=== PATIENT | female | born 1955 | race Caucasian/White ===

== ENCOUNTER 2017-06-07 23:11 | Inpatient (IN) | payer OTHER ==
[~2017-06-07] VITALS: Ht 165.1 cm; Wt 104.5 kg
[~2017-06-07 23:11] MED LIST: AMIO200T PO; APIX5TAB PO; ASPI-515 PO; ASPI-621 PO; CARV6.2512 PO; CYAN10005 PO; DABI150C PO; DIGO125T6 PO; DIGO250T PO; FOLI-17 PO; FURO-93 PO; LISI5TAB7 PO; MULT1TAB60 PO; POTA20PA PO; SIMV10TA PO; SIMV10TA3 PO; SPIR25TA PO; THIA100T6 PO
[2017-06-07] MEDS ORDERED: DILTIAZEM 125 MG in DEXTROSE 5% 100 ML IV SCH (23:36)
[2017-06-07] MEDS ORDERED: DILTIAZEM 5 MG/ML, 5ML ONE (23:37)
[2017-06-08] MEDS ORDERED: ASPIRIN 81 MG TABLET CHEW PO ONE
[2017-06-08] MEDS ORDERED: DILTIAZEM 5 MG/ML, 5ML IV ONE
[2017-06-08 00:21] LABS: BLOOD UREA NITROGEN 14 mg/dL (7-18)
[2017-06-08 00:26] LABS: IS PT STATUS REG ER OR PRE ER? YES
[2017-06-08] MEDS: DILTIAZEM 125 MG in SODIUM CHLORIDE 0.9% 100 ML IV SCH ×3 (01:30→22:19)
[2017-06-08] MEDS: NICOTINE 7 MG/24 HR PATCH.TD24 TD SCH (02:00)
[2017-06-08] MEDS ORDERED: ONDANSETRON 2MG/ML, 2ML IVPush PRN (02:00)
[2017-06-08] MEDS ORDERED: DOCUSATE 100 MG CAPSULE PO PRN (02:00)
[2017-06-08] MEDS ORDERED: GUAIFENESIN/DM 200-20MG, 10ML UDC PO PRN (02:00)
[2017-06-08] MEDS ORDERED: HYDROcodone/APAP 5/325 TABLET PO PRN (02:00)
[2017-06-08] MEDS ORDERED: POLYETHYLENE GLYCOL 17 GM PACKET PO PRN (02:00)
[2017-06-08] MEDS ORDERED: morphine SULFATE 10 MG/ML, 1ML IVPush PRN (02:00)
[2017-06-08 02:31] VITALS: BP 126/84
[2017-06-08] MEDS: FUROSEMIDE 40 MG/4 ML IV SCH ×3 (03:26→17:59)
[2017-06-08] MEDS ORDERED: ASPIRIN 81 MG TABLET EC PO SCH (06:00)
[2017-06-08 07:09] VITALS: BP 108/76
[2017-06-08] MEDS ORDERED: POTASSIUM CHLORIDE 20 MEQ TAB.ER.PRT PO ONE (09:00)
[2017-06-08] MEDS: THIAMINE 100MG TABLET PO SCH (09:03)
[2017-06-08] MEDS: ASPIRIN 325 MG TABLET EC PO SCH (09:03)
[2017-06-08] MEDS: CYANOCOBALAMIN 1,000 MCG TABLET PO SCH (09:03)
[2017-06-08] MEDS: SENNA/DOCUSATE TABLET PO SCH (09:03)
[2017-06-08] MEDS: FOLIC ACID 1 MG TABLET PO SCH (09:04)
[2017-06-08] MEDS: MULTIVITAMIN 1 TABLET PO SCH (09:04)
[2017-06-08] MEDS: DIGOXIN 0.25 MG TABLET PO SCH (09:04)
[2017-06-08] MEDS: APIXABAN 5 MG TABLET PO SCH ×2 (09:04→20:41)
[2017-06-08] MEDS: SODIUM CHLORIDE FLUSH 10ML SYR IVF SCH ×2 (09:05→20:41)
[2017-06-08] MEDS: ACETAMINOPHEN 325 MG TABLET PO PRN ×2 (09:19→20:41)
[2017-06-08 10:09] VITALS: BP 112/76
[2017-06-08 14:16] VITALS: BP 99/66
[2017-06-08 16:36] VITALS: BP 110/75
[2017-06-08 20:30] VITALS: BP 105/71
[2017-06-08] MEDS: SIMVASTATIN 10 MG TABLET PO SCH (20:41)
[2017-06-09] MEDS: NICOTINE 7 MG/24 HR PATCH.TD24 TD SCH (01:21)
[2017-06-09] MEDS: ACETAMINOPHEN 325 MG TABLET PO PRN (02:16)
[2017-06-09 02:20] VITALS: BP 108/72
[2017-06-09 05:02] LABS: BLOOD UREA NITROGEN 13 mg/dL (7-18)
[2017-06-09 05:06] LABS: IS PT STATUS REG ER OR PRE ER? NO
[2017-06-09 08:12] VITALS: BP 110/75
[2017-06-09] MEDS: ASPIRIN 325 MG TABLET EC PO SCH (08:18)
[2017-06-09] MEDS: SODIUM CHLORIDE FLUSH 10ML SYR IVF SCH ×3 (08:18→21:15)
[2017-06-09] MEDS: DIGOXIN 0.25 MG TABLET PO SCH (08:18)
[2017-06-09] MEDS: MULTIVITAMIN 1 TABLET PO SCH (08:18)
[2017-06-09] MEDS: CYANOCOBALAMIN 1,000 MCG TABLET PO SCH (08:18)
[2017-06-09] MEDS: FOLIC ACID 1 MG TABLET PO SCH (08:18)
[2017-06-09] MEDS: APIXABAN 5 MG TABLET PO SCH ×2 (08:18→21:15)
[2017-06-09] MEDS: FUROSEMIDE 40 MG/4 ML IV SCH (08:18)
[2017-06-09] MEDS: THIAMINE 100MG TABLET PO SCH (08:18)
[2017-06-09] MEDS: SENNA/DOCUSATE TABLET PO SCH (08:20)
[2017-06-09] MEDS ORDERED: DEXTROSE 50%, 50ML SYRINGE IVPush PRN (10:30)
[2017-06-09] MEDS ORDERED: GLUCAGON 1 MG IM PRN (10:30)
[2017-06-09] MEDS ORDERED: DEXTROSE 4 GM TAB.CHEW PO PRN (10:30)
[2017-06-09] MEDS ORDERED: DILTIAZEM 60 MG TABLET PO SCH (11:00)
[2017-06-09] MEDS: INSULIN ASPART 100 UNITS/ML, PEN SQ-INSULIN SCH ×3 (11:58→21:11)
[2017-06-09 13:17] VITALS: BP 99/67
[2017-06-09 16:02] VITALS: BP 99/68
[2017-06-09 19:14] VITALS: BP 100/70
[2017-06-09] MEDS: SIMVASTATIN 10 MG TABLET PO SCH (21:15)
[2017-06-10 01:26] VITALS: BP 107/71
[2017-06-10] MEDS: NICOTINE 7 MG/24 HR PATCH.TD24 TD SCH (01:31)
[2017-06-10] MEDS: ASPIRIN 81 MG TABLET EC PO SCH (05:48)
[2017-06-10 07:05] VITALS: BP 102/69
[2017-06-10] MEDS: THIAMINE 100MG TABLET PO SCH (08:27)
[2017-06-10] MEDS: INSULIN ASPART 100 UNITS/ML, PEN SQ-INSULIN SCH ×4 (08:27→20:51)
[2017-06-10] MEDS: FOLIC ACID 1 MG TABLET PO SCH (08:28)
[2017-06-10] MEDS: CYANOCOBALAMIN 1,000 MCG TABLET PO SCH ×2 (08:28→08:30)
[2017-06-10] MEDS: MULTIVITAMIN 1 TABLET PO SCH (08:28)
[2017-06-10] MEDS: DIGOXIN 0.25 MG TABLET PO SCH (08:28)
[2017-06-10] MEDS: APIXABAN 5 MG TABLET PO SCH ×2 (08:29→20:50)
[2017-06-10] MEDS: FUROSEMIDE 40 MG/4 ML IV SCH (08:30)
[2017-06-10] MEDS: SODIUM CHLORIDE FLUSH 10ML SYR IVF SCH ×4 (08:30→20:50)
[2017-06-10] MEDS: SENNA/DOCUSATE TABLET PO SCH (08:30)
[2017-06-10] MEDS: CARVEDILOL 3.125 MG TABLET PO SCH ×2 (12:11→20:49)
[2017-06-10] MEDS: LISINOPRIL 5 MG TABLET PO SCH (12:14)
[2017-06-10 14:15] VITALS: BP 93/61
[2017-06-10 19:24] VITALS: BP 103/70
[2017-06-10 20:49] VITALS: BP 101/76
[2017-06-10] MEDS: SIMVASTATIN 10 MG TABLET PO SCH (20:50)
[2017-06-11] MEDS: NICOTINE 7 MG/24 HR PATCH.TD24 TD SCH (02:00)
[2017-06-11 02:07] VITALS: BP 102/68
[2017-06-11] MEDS: ASPIRIN 81 MG TABLET EC PO SCH (06:05)
[2017-06-11] MEDS: CARVEDILOL 3.125 MG TABLET PO SCH (06:06)
[2017-06-11 07:05] VITALS: BP 99/66
[2017-06-11] MEDS ORDERED: LISI5TAB7 PO (07:29)
[2017-06-11] MEDS ORDERED: POTA20TA14 PO (07:29)
[2017-06-11] MEDS ORDERED: FURO-93 PO (07:29)
[2017-06-11] MEDS ORDERED: CARV3.1212 PO (07:29)
[2017-06-11] MEDS ORDERED: METF500T4 PO (07:32)
[2017-06-11] MEDS: FUROSEMIDE 40 MG/4 ML IV SCH (07:59)
[2017-06-11] MEDS: INSULIN ASPART 100 UNITS/ML, PEN SQ-INSULIN SCH (07:59)
[2017-06-11] MEDS: SODIUM CHLORIDE FLUSH 10ML SYR IVF SCH ×2 (07:59)
[2017-06-11] MEDS: CYANOCOBALAMIN 1,000 MCG TABLET PO SCH ×2 (08:00→08:01)
[2017-06-11] MEDS: APIXABAN 5 MG TABLET PO SCH (08:00)
[2017-06-11] MEDS: THIAMINE 100MG TABLET PO SCH (08:00)
[2017-06-11] MEDS: SENNA/DOCUSATE TABLET PO SCH (08:01)
[2017-06-11] MEDS: LISINOPRIL 5 MG TABLET PO SCH (08:01)
[2017-06-11] MEDS: DIGOXIN 0.25 MG TABLET PO SCH (08:01)
[2017-06-11] MEDS: FOLIC ACID 1 MG TABLET PO SCH (08:01)
[2017-06-11] MEDS: MULTIVITAMIN 1 TABLET PO SCH (08:01)
[2017-06-11] MEDS ORDERED: DIGO250T PO (14:48)
[2017-06-11] MEDS ORDERED: SIMV10TA3 PO (14:48)
[2017-06-11] MEDS ORDERED: APIX5TAB PO (14:48)
[2017-06-11] MEDS ORDERED: ASPI-621 PO (14:48)
== END 2017-06-11 10:50 | disposition home or self-care (01) | DRG 308 ==
LOC: ED 23:59 → SUATTDRO 06-08 00:57 → EDIP 06-08 01:45 → 5SO 06-08 02:30 → DCLOUNGE 06-11 10:14
PROVIDERS: ADMIT Family Medicine; ATTEND Internal Medicine
DX: I48.91 Unspecified atrial fibrillation (principal); I50.43 Acute on chronic combined systolic (congestive) and diastolic (congestive) heart failure; Z68.41 Body mass index [BMI] 40.0-44.9, adult; D68.69 Other thrombophilia; E66.01 Morbid (severe) obesity due to excess calories; Z66 Do not resuscitate; D69.6 Thrombocytopenia, unspecified; F17.210 Nicotine dependence, cigarettes, uncomplicated; I25.10 Atherosclerotic heart disease of native coronary artery without angina pectoris; E11.65 Type 2 diabetes mellitus with hyperglycemia; E53.8 Deficiency of other specified B group vitamins; D75.89 Other specified diseases of blood and blood-forming organs; Z86.711 Personal history of pulmonary embolism; I25.2 Old myocardial infarction; Z91.19 Patient's noncompliance with other medical treatment and regimen; Z88.0 Allergy status to penicillin; Z82.49 Family history of ischemic heart disease and other diseases of the circulatory system; Z80.1 Family history of malignant neoplasm of trachea, bronchus and lung; Z72.89 Other problems related to lifestyle; Z71.6 Tobacco abuse counseling
CPT/HCPCS: 36415; 71010; 80048; 80061; 82040; 82962; 83036; 83880; 84443; 84484; 85025; 85610; 93005; 96374; J1815; J1940

== ENCOUNTER 2017-09-12 18:26 | Inpatient (IN) | payer OTHER ==
[~2017-09-12] VITALS: Ht 167.6 cm; Wt 112.4 kg
[~2017-09-12 18:26] MED LIST changes: +CARV3.1212 PO; +METF500T4 PO; +POTA20TA14 PO
[2017-09-12] MEDS ORDERED: DILTIAZEM 125 MG in DEXTROSE 5% 100 ML IV SCH (18:45)
[2017-09-12] MEDS ORDERED: SODIUM CHLORIDE FLUSH 10ML SYR IVF ONE (19:00)
[2017-09-12] MEDS ORDERED: DILTIAZEM 125 MG in SODIUM CHLORIDE 0.9% 100 ML IV SCH (19:00)
[2017-09-12] MEDS ORDERED: DILTIAZEM 5 MG/ML, 5ML IV ONE (19:00)
[2017-09-12 19:04] LABS: HEMOGLOBIN 15.3 g/dL (11.7-16.4); WHITE BLOOD COUNT 8.1 x10^3/uL (3.4-10)
[2017-09-12 19:17] LABS: BLOOD UREA NITROGEN 11 mg/dL (7-18)
[2017-09-12] MEDS ORDERED: DILTIAZEM 5 MG/ML, 5ML ONE (19:17)
[2017-09-12 19:21] LABS: PH, VENOUS 7.313 pH (7.320-7.420)
[2017-09-12 19:23] LABS: ASPARTATE AMINO TRANSFERASE 18 U/L (15-37)
[2017-09-12 19:31] LABS: IS PT STATUS REG ER OR PRE ER? YES
[2017-09-12] MEDS: SODIUM CHLORIDE 0.9% 1,000ML IVBOLUS ONE ×2 (19:45→19:52)
[2017-09-12] MEDS ORDERED: INSULIN REGULAR 100 UNITS/ML, 3ML VIAL ONE (19:54)
[2017-09-12] MEDS ORDERED: INSULIN REGULAR 100 UNITS/ML, 3ML VIAL SQ-INSULIN ONE (20:00)
[2017-09-12] MEDS ORDERED: SODIUM CHLORIDE FLUSH 10ML SYR IVF PRN (21:30)
[2017-09-12] MEDS ORDERED: REGULAR INSULIN 62.5 UNITS in SODIUM CHLORIDE 0.9% 249.375 ML IV PRN (22:59)
[2017-09-12] MEDS ORDERED: D5%-0.45% NACL 1,000 ML IV PRN (22:59)
[2017-09-12] MEDS ORDERED: DILTIAZEM 125 MG in SODIUM CHLORIDE 0.9% 100 ML IV PRN (23:00)
[2017-09-12] MEDS ORDERED: ONDANSETRON 2MG/ML, 2ML IVPush PRN (23:00)
[2017-09-12] MEDS ORDERED: GLUCAGON 1 MG IM PRN (23:00)
[2017-09-12] MEDS ORDERED: DEXTROSE 4 GM TAB.CHEW PO PRN (23:00)
[2017-09-12] MEDS ORDERED: DEXTROSE 50%, 50ML SYRINGE IVPush PRN (23:00)
[2017-09-12 23:31] LABS: BLOOD UREA NITROGEN 10 mg/dL (7-18)
[2017-09-12] MEDS: SODIUM CHLORIDE 0.9% 1,000 ML IV SCH (23:55)
[2017-09-13 00:03] VITALS: BP_SYST 111; BP_SYST 116; BP_DIAS 69; BP_DIAS 72
[2017-09-13] MEDS: APIXABAN 5 MG TABLET PO SCH ×3 (00:54→22:04)
[2017-09-13 04:00] VITALS: BP 102/55
[2017-09-13 04:42] LABS: BLOOD UREA NITROGEN 9 mg/dL (7-18)
[2017-09-13] MEDS ORDERED: MAGNESIUM SULFATE PMX 4GM/100M 100 ML IV ONE (07:30)
[2017-09-13] MEDS ORDERED: POTASSIUM PHOSPHATE 44 MEQ in SODIUM CHLORIDE 0.9% 500 ML IV ONE (07:30)
[2017-09-13] MEDS ORDERED: SODIUM CHLORIDE FLUSH 10ML SYR IVF SCH (09:00)
[2017-09-13] MEDS: INSULIN DETEMIR 100 UNITS/ML, PEN SQ-INSULIN SCH ×2 (10:22→22:09)
[2017-09-13] MEDS: FOLIC ACID 1 MG TABLET PO SCH (10:22)
[2017-09-13] MEDS: CARVEDILOL 3.125 MG TABLET PO SCH ×2 (10:23→18:12)
[2017-09-13 11:05] VITALS: BP 112/78
[2017-09-13] MEDS: INSULIN ASPART 100 UNITS/ML, PEN SQ-INSULIN SCH ×3 (12:52→22:09)
[2017-09-13 13:56] VITALS: BP 97/68
[2017-09-13] MEDS: ACETAMINOPHEN 325 MG TABLET PO PRN (16:00)
[2017-09-13] MEDS ORDERED: GLUCAGON 1 MG IM PRN (20:00)
[2017-09-13] MEDS ORDERED: DEXTROSE 50%, 50ML SYRINGE IVPush PRN (20:00)
[2017-09-13] MEDS ORDERED: DEXTROSE 4 GM TAB.CHEW PO PRN (20:00)
[2017-09-13] MEDS ORDERED: ONDANSETRON 2MG/ML, 2ML IVPush PRN (20:00)
[2017-09-13 21:01] VITALS: BP 138/64
[2017-09-13] MEDS: SODIUM CHLORIDE 0.9% 1,000 ML IV SCH (22:04)
[2017-09-13] MEDS: SIMVASTATIN 10 MG TABLET PO SCH (22:04)
[2017-09-13] MEDS: SODIUM CHLORIDE FLUSH 10ML SYR IVF SCH (22:05)
[2017-09-14 01:15] VITALS: BP 109/76
[2017-09-14 04:46] LABS: BLOOD UREA NITROGEN 10 mg/dL (7-18)
[2017-09-14] MEDS: CARVEDILOL 3.125 MG TABLET PO SCH ×2 (05:18→16:47)
[2017-09-14] MEDS: ACETAMINOPHEN 325 MG TABLET PO PRN ×2 (05:18→08:45)
[2017-09-14] MEDS: INSULIN ASPART 100 UNITS/ML, PEN SQ-INSULIN SCH ×4 (06:40→21:37)
[2017-09-14 08:00] VITALS: BP 122/82
[2017-09-14] MEDS: FOLIC ACID 1 MG TABLET PO SCH (08:41)
[2017-09-14] MEDS: APIXABAN 5 MG TABLET PO SCH ×2 (08:41→21:36)
[2017-09-14] MEDS: SODIUM CHLORIDE FLUSH 10ML SYR IVF SCH ×2 (08:42→21:41)
[2017-09-14] MEDS: INSULIN DETEMIR 100 UNITS/ML, PEN SQ-INSULIN SCH ×2 (08:43→21:41)
[2017-09-14] MEDS: SODIUM CHLORIDE 0.9% 1,000 ML IV SCH (08:51)
[2017-09-14] MEDS ORDERED: HYDROcodone/APAP 5/325 TABLET PO PRN (12:30)
[2017-09-14 14:47] VITALS: BP 97/67
[2017-09-14 15:58] VITALS: BP 115/85
[2017-09-14] MEDS ORDERED: DIGOXIN 0.25 MG/ML, 2ML IVPush ONE (16:00)
[2017-09-14] MEDS: FUROSEMIDE 20 MG/2 ML IV SCH (16:47)
[2017-09-14] MEDS ORDERED: METOPROLOL TARTRATE 50 MG TABLET ONE (18:22)
[2017-09-14] MEDS: METOPROLOL TARTRATE 25 MG TABLET PO SCH (18:25)
[2017-09-14] MEDS ORDERED: DILTIAZEM 125 MG in SODIUM CHLORIDE 0.9% 100 ML IV PRN ×2 (18:30→20:30)
[2017-09-14 19:05] VITALS: BP 92/64
[2017-09-14] MEDS ORDERED: LABETALOL 5MG/ML, 20ML IVPush SCH (21:00)
[2017-09-14] MEDS: SIMVASTATIN 10 MG TABLET PO SCH (21:36)
[2017-09-15] VITALS (9 sets, daily range): BP systolic 80–124; BP diastolic 56–80
[2017-09-15] MEDS: METOPROLOL TARTRATE 25 MG TABLET PO SCH ×3 (00:59→12:25)
[2017-09-15] MEDS: ASPIRIN 81 MG TABLET EC PO SCH (05:38)
[2017-09-15] MEDS: ACETAMINOPHEN 325 MG TABLET PO PRN (05:38)
[2017-09-15 06:01] LABS: BLOOD UREA NITROGEN 12 mg/dL (7-18)
[2017-09-15 06:10] LABS: HEMATOCRIT 47.6 % (34.6-47.8); HEMOGLOBIN 15.7 g/dL (11.7-16.4)
[2017-09-15 06:18] LABS: ASPARTATE AMINO TRANSFERASE 20 U/L (15-37)
[2017-09-15] MEDS ORDERED: POTASSIUM CHLORIDE 20 MEQ TAB.ER.PRT PO ONE (07:00)
[2017-09-15] MEDS: INSULIN ASPART 100 UNITS/ML, PEN SQ-INSULIN SCH ×4 (08:25→21:24)
[2017-09-15] MEDS: DIGOXIN 0.125 MG TABLET PO SCH (09:36)
[2017-09-15] MEDS: APIXABAN 5 MG TABLET PO SCH ×2 (09:36→21:22)
[2017-09-15] MEDS: LISINOPRIL 5 MG TABLET PO SCH (09:36)
[2017-09-15] MEDS: FOLIC ACID 1 MG TABLET PO SCH (09:36)
[2017-09-15] MEDS: INSULIN DETEMIR 100 UNITS/ML, PEN SQ-INSULIN SCH ×2 (09:41→21:23)
[2017-09-15] MEDS: FUROSEMIDE 20 MG/2 ML IV SCH (09:42)
[2017-09-15] MEDS: SODIUM CHLORIDE FLUSH 10ML SYR IVF SCH ×2 (09:42→21:24)
[2017-09-15] MEDS ORDERED: MAGNESIUM SULFATE PMX 2GM/50ML 50 ML IV ONE (15:30)
[2017-09-15] MEDS: DILTIAZEM 30 MG TABLET PO SCH ×2 (16:09→21:00)
[2017-09-15 16:11] LABS: BLOOD UREA NITROGEN 11 mg/dL (7-18)
[2017-09-15] MEDS: CARVEDILOL 3.125 MG TABLET PO SCH (17:23)
[2017-09-15] MEDS ORDERED: CARVEDILOL 3.125 MG TABLET PO SCH (18:00)
[2017-09-15] MEDS: ATORVASTATIN 20 MG TABLET PO SCH (21:22)
[2017-09-16] VITALS (11 sets, daily range): BP systolic 83–104; BP diastolic 54–73
[2017-09-16] MEDS: ASPIRIN 81 MG TABLET EC PO SCH (06:08)
[2017-09-16 06:16] LABS: HEMATOCRIT 43.9 % (34.6-47.8); HEMOGLOBIN 14.7 g/dL (11.7-16.4); WHITE BLOOD COUNT 5.1 x10^3/uL (3.4-10)
[2017-09-16 06:19] LABS: BLOOD UREA NITROGEN 8 mg/dL (7-18)
[2017-09-16] MEDS: CARVEDILOL 3.125 MG TABLET PO SCH ×2 (06:22→20:23)
[2017-09-16] MEDS: INSULIN ASPART 100 UNITS/ML, PEN SQ-INSULIN SCH ×4 (07:00→20:20)
[2017-09-16] MEDS ORDERED: FUROSEMIDE 40 MG TABLET PO SCH (09:00)
[2017-09-16] MEDS: FUROSEMIDE 20 MG TABLET PO SCH (09:00)
[2017-09-16] MEDS: DIGOXIN 0.125 MG TABLET PO SCH (09:29)
[2017-09-16] MEDS: DILTIAZEM 30 MG TABLET PO SCH (09:30)
[2017-09-16] MEDS: INSULIN DETEMIR 100 UNITS/ML, PEN SQ-INSULIN SCH ×2 (09:31→20:22)
[2017-09-16] MEDS: APIXABAN 5 MG TABLET PO SCH ×2 (09:31→20:22)
[2017-09-16] MEDS: FOLIC ACID 1 MG TABLET PO SCH (09:31)
[2017-09-16] MEDS: SODIUM CHLORIDE FLUSH 10ML SYR IVF SCH ×2 (09:31→20:23)
[2017-09-16] MEDS: LISINOPRIL 5 MG TABLET PO SCH (11:13)
[2017-09-16] MEDS ORDERED: DILTIAZEM 240 MG CAP.ER.24H PO SCH (12:00)
[2017-09-16] MEDS ORDERED: NS + 20MEQ KCL 1,000 ML IV SCH ×2 (16:30→18:00)
[2017-09-16] MEDS: ATORVASTATIN 20 MG TABLET PO SCH (20:22)
[2017-09-17 04:20] VITALS: BP 104/71
[2017-09-17] MEDS: ASPIRIN 81 MG TABLET EC PO SCH (04:27)
[2017-09-17 08:45] VITALS: BP 106/72
[2017-09-17] MEDS: DIGOXIN 0.125 MG TABLET PO SCH (08:47)
[2017-09-17] MEDS: APIXABAN 5 MG TABLET PO SCH (08:47)
[2017-09-17] MEDS: FOLIC ACID 1 MG TABLET PO SCH (08:47)
[2017-09-17] MEDS: FUROSEMIDE 20 MG TABLET PO SCH (08:48)
[2017-09-17] MEDS: CARVEDILOL 3.125 MG TABLET PO SCH (08:48)
[2017-09-17] MEDS: SODIUM CHLORIDE FLUSH 10ML SYR IVF SCH (08:49)
[2017-09-17] MEDS: INSULIN ASPART 100 UNITS/ML, PEN SQ-INSULIN SCH ×2 (08:50→11:44)
[2017-09-17] MEDS: INSULIN DETEMIR 100 UNITS/ML, PEN SQ-INSULIN SCH (08:50)
[2017-09-17] MEDS ORDERED: DILTIAZEM 240 MG CAP.ER.24H PO SCH (09:00)
[2017-09-17] MEDS: LISINOPRIL 5 MG TABLET PO SCH (09:00)
[2017-09-17] MEDS ORDERED: ATOR20TA9 PO (10:49)
[2017-09-17] MEDS ORDERED: DIGO125T PO (10:49)
[2017-09-17] MEDS ORDERED: ASPI-621 PO (10:49)
[2017-09-17] MEDS ORDERED: METF500T4 PO (10:49)
[2017-09-17] MEDS ORDERED: CARV3.1212 PO (10:49)
[2017-09-17] MEDS ORDERED: LISI5TAB7 PO (10:49)
[2017-09-17] MEDS ORDERED: INSU100I28 SQ-INSULIN (10:49)
[2017-09-17] MEDS ORDERED: FURO20TA3 PO (10:49)
[2017-09-17] MEDS ORDERED: APIX5TAB PO (10:49)
[2017-09-17] MEDS ORDERED: DILT240C55 PO (10:49)
[2017-09-17] MEDS ORDERED: NS + 20MEQ KCL 1,000 ML IV SCH (16:30)
== END 2017-09-17 14:40 | disposition home or self-care (01) | DRG 308 ==
LOC: ED 20:05 → EDIP 21:27 → CCU 23:27 → 5SO 09-13 10:48 → DCLOUNGE 09-17 14:40
PROVIDERS: ADMIT Hospitalist; ATTEND Family Medicine
DX: I48.0 Paroxysmal atrial fibrillation (principal); E11.10 Type 2 diabetes mellitus with ketoacidosis without coma; D68.69 Other thrombophilia; D69.6 Thrombocytopenia, unspecified; I50.42 Chronic combined systolic (congestive) and diastolic (congestive) heart failure; D75.89 Other specified diseases of blood and blood-forming organs; E53.8 Deficiency of other specified B group vitamins; F17.200 Nicotine dependence, unspecified, uncomplicated; I25.10 Atherosclerotic heart disease of native coronary artery without angina pectoris; I25.2 Old myocardial infarction; Z79.01 Long term (current) use of anticoagulants; Z79.4 Long term (current) use of insulin; Z86.711 Personal history of pulmonary embolism; Z91.19 Patient's noncompliance with other medical treatment and regimen
CPT/HCPCS: 36415; 71010; 80048; 80053; 80162; 82010; 82040; 82607; 82746; 82803; 82962; 83036; 83735; 83880; 84100; 84436; 84443; 84484; 85025; 85610; 85730; 87081; 93005; J1815; J3480; J1160; J1940; J3475; J7030; J7040; J7050

== ENCOUNTER → 2017-10-21 | Outpatient (CLI) | payer OTHER ==
[~2017-10-21] MED LIST changes: +ATOR20TA9 PO; +DIGO125T PO; +DILT240C55 PO; +FURO20TA3 PO; +INSU100I28 SQ-INSULIN
[2017-10-21 08:47] LABS: ASPARTATE AMINO TRANSFERASE 28 U/L (15-37); BLOOD UREA NITROGEN 28 mg/dL (7-18)
== END | disposition home or self-care (01) ==
LOC: LAB 08:21
PROVIDERS: ATTEND Internal Medicine Cardiovascular Disease
DX: E78.5 Hyperlipidemia, unspecified (principal); E11.9 Type 2 diabetes mellitus without complications; I48.91 Unspecified atrial fibrillation
CPT/HCPCS: 36415; 80053; 80061; 80162; 83036

== ENCOUNTER → 2018-05-19 | Outpatient (CLI) | payer OTHER ==
[~2018-05-19] MED LIST changes: -DIGO125T6 PO; +DIGO125T81 PO; +TRAM50TA2 PO
[2018-05-19 09:07] LABS: ALANINE AMINOTRANSFERASE 24 U/L (12-78); ANION GAP 9 mmol/L (5-15); CHLORIDE 106 mmol/L (98-107); CHOLESTEROL, TOTAL 151 mg/dL (140-239); CREATININE 0.95 mg/dL (0.55-1.02); TRIGLYCERIDES 76 mg/dL (50-200); VLDL CHOLESTEROL 15 mg/dL (0-25)
[2018-05-19 09:16] LABS: HEMOGLOBIN A1C 7.7 % (4.2-6.3)
[2018-05-19 09:22] LABS: ALKALINE PHOSPHATASE 87 U/L (45-117); BILIRUBIN,TOTAL 0.8 mg/dL (0.2-1.0); CHOL/HDL RATIO 2.2; HDL CHOL % 46 % (28-40); HDL CHOLESTEROL (DIRECT) 69 mg/dL (40-60); LDL CHOLESTEROL,CALCULATED 67 mg/dL (54-169); TOTAL PROTEIN 7.5 g/dL (6.4-8.2)
== END | disposition home or self-care (01) ==
LOC: LAB 08:24
PROVIDERS: ATTEND Internal Medicine Cardiovascular Disease
DX: Z01.419 Encounter for gynecological examination (general) (routine) without abnormal findings (principal); Z11.59 Encounter for screening for other viral diseases; E11.65 Type 2 diabetes mellitus with hyperglycemia; E78.5 Hyperlipidemia, unspecified; I48.91 Unspecified atrial fibrillation; I50.41 Acute combined systolic (congestive) and diastolic (congestive) heart failure
CPT/HCPCS: 36415; 80053; 80061; 80162; 83036; 86803; 87806; G0475

== ENCOUNTER 2018-12-03 12:49 | Emergency (ER) | payer OTHER ==
[~2018-12-03] VITALS: Ht 165.1 cm; Wt 88.1 kg
[~2018-12-03 12:49] MED LIST changes: -ASPI-621 PO; +ASPI81TA45 PO; +ATOR20TA37 PO; -ATOR20TA9 PO; +METF500T17 PO; -METF500T4 PO; -POTA20PA PO; +POTA20PA31 PO; -THIA100T6 PO; +THIA100T67 PO
--- NOTE | 2018-12-03 13:25 | NUR ---
Assumed care of patient. C/O cough since Friday, with hemoptysis and green sputum starting last night. Taking Eliquis. Placed on NIBP, pulse ox and cardiac/vascular sonographer. In afib, hx of the same. Will continue to monitor.
[2018-12-03] MEDS ORDERED: SODIUM CHLORIDE FLUSH 10ML SYR IVF ONE (13:30)
[2018-12-03 13:33] LABS: BASOPHILS # (AUTO) 0.04 x10^3/uL (0-0.1); BASOPHILS % (AUTO) 0 % (0-1); EOSINOPHILS # (AUTO) 0.09 x10^3/uL (0-0.4); EOSINOPHILS % (AUTO) 1 % (1-7); LYMPHOCYTES # (AUTO) 2.16 x10^3/uL (1-3.4); LYMPHOCYTES % (AUTO) 26 % (22-44); MD NO; MEAN CORPUSCULAR HEMOGLOBIN 34.7 pg (27.0-34.8); MEAN CORPUSCULAR HGB CONC 33.6 g/dL (32.4-35.8); MEAN CORPUSCULAR VOLUME 103.3 fL (80-100); MEAN PLATELET VOLUME 12.1 fL (7.4-10.4); MONOCYTES # (AUTO) 0.52 x10^3/uL (0.2-0.8); MONOCYTES % (AUTO) 6 % (2-9); NEUTROPHILS # (AUTO) 5.65 x10^3/uL (1.8-6.8); NEUTROPHILS % (AUTO) 67 % (42-75); PLATELET COUNT 159 x10^3/uL (130-400); RED CELL DISTRIBUTION WIDTH 13.4 % (9.6-15.2)
[2018-12-03 13:47] LABS: ALANINE AMINOTRANSFERASE 110 U/L (12-78); ALBUMIN 3.1 g/dL (3.4-5.0); ANION GAP 9 mmol/L (5-15); CALCIUM 8.8 mg/dL (8.5-10.1); CHLORIDE 107 mmol/L (98-107); CREATININE 0.98 mg/dL (0.55-1.02)
[2018-12-03 13:51] LABS: RAPID INFLUENZA A Negative (Negative); RAPID INFLUENZA B Negative (Negative)
[2018-12-03 13:51] LABS: ALKALINE PHOSPHATASE 160 U/L (45-117); BILIRUBIN,TOTAL 0.8 mg/dL (0.2-1.0); TOTAL PROTEIN 7.3 g/dL (6.4-8.2); TROPONIN I < 0.015 ng/mL (0.000-0.045)
--- NOTE | 2018-12-03 13:58 | NUR ---
Provided with water per MD Hal. is aware of BP and does not want IV fluids.
--- NOTE | 2018-12-03 15:05 | NUR ---
Resting in [facility]. BP slightly improved. Patient states, "my normal BP is around 100/70."
--- NOTE | 2018-12-03 15:32 | NUR ---
IV started. CT aware. No other needs.
[2018-12-03] MEDS ORDERED: OMNIPAQUE 350 MG/ML, 100ML BOTTLE ONE (16:01)
[2018-12-03 16:45] VITALS: BP 93/59
== END 2018-12-03 17:06 | disposition home or self-care (01) ==
LOC: ED 14:29
DX: J18.9 Pneumonia, unspecified organism (principal); I48.2 Chronic atrial fibrillation; F17.210 Nicotine dependence, cigarettes, uncomplicated; E11.10 Type 2 diabetes mellitus with ketoacidosis without coma; I25.2 Old myocardial infarction; I50.9 Heart failure, unspecified; Z88.0 Allergy status to penicillin
CPT/HCPCS: 36415; 71045; 71275; 80053; 80162; 83880; 84484; 85025; 87400; 93005; 99284; Q9967

== ENCOUNTER 2019-11-04 10:11 | Outpatient (CLI) | payer MEDICARE ==
[~2019-11-04 10:11] MED LIST changes: +CYAN-27 PO; -CYAN10005 PO
[2019-11-04 11:49] LABS: ALANINE AMINOTRANSFERASE 30 U/L (12-78); ALBUMIN 3.8 g/dL (3.4-5.0); ANION GAP 6 mmol/L (5-15); CALCIUM 9.5 mg/dL (8.5-10.1); CHLORIDE 107 mmol/L (98-107); CREATININE 0.97 mg/dL (0.55-1.02)
[2019-11-04 11:51] LABS: ALKALINE PHOSPHATASE 92 U/L (45-117); BILIRUBIN,TOTAL 0.6 mg/dL (0.2-1.0); TOTAL PROTEIN 7.4 g/dL (6.4-8.2)
[2019-11-04] MEDS ORDERED: DIGO125T PO (13:05)
[2019-11-04] MEDS ORDERED: SPIR25TA5 PO (13:05)
[2019-11-04] MEDS ORDERED: CARV3.122 PO (13:05)
[2019-11-04] MEDS ORDERED: APIX5TAB PO (13:05)
[2019-11-04] MEDS ORDERED: DILT240C77 PO (13:06)
[2019-11-04] MEDS ORDERED: ATOR20TA37 PO (13:07)
[2019-11-04] MEDS ORDERED: LISI5TAB7 PO (13:07)
[2019-11-04] MEDS ORDERED: INSU100I28 SQ-INSULIN (13:07)
[2019-11-04] MEDS ORDERED: SEMA0.25 INJ (13:17)
[2019-11-04] MEDS ORDERED: THIA100T27 PO (13:17)
[2019-11-04] MEDS ORDERED: ASPI-496 PO (13:17)
[2019-11-04] MEDS ORDERED: METF500T17 PO (13:17)
[2019-11-04] MEDS ORDERED: FOLI0.4T2 PO (13:17)
[2019-11-04] MEDS ORDERED: CYAN500T54 PO (13:17)
== END 2019-11-04 23:59 | disposition home or self-care (01) ==
LOC: STAR 10:11
PROVIDERS: ATTEND Surgery
DX: Z01.818 Encounter for other preprocedural examination (principal); I48.91 Unspecified atrial fibrillation; I45.10 Unspecified right bundle-branch block
CPT/HCPCS: 36415; 80053; 93005

== ENCOUNTER 2019-11-08 10:37 | Day surgery (SDC) | payer MEDICARE ==
[~2019-11-08] VITALS: Ht 167.6 cm; Wt 92.0 kg
[~2019-11-08 10:37] MED LIST changes: +ASPI-496 PO; +CARV3.122 PO; +CYAN500T54 PO; +DILT240C77 PO; +FOLI0.4T2 PO; +SEMA0.25 INJ; +SPIR25TA5 PO; +THIA100T27 PO
[2019-11-08] MEDS ORDERED: LACTATED RINGERS 1,000 ML IV SCH (10:59)
[2019-11-08 11:00] VITALS: BP 94/67
[2019-11-08] MEDS ORDERED: MIDAZOLAM 1 MG/ML, 2ML ONE (11:30)
[2019-11-08] MEDS ORDERED: PROPOFOL 50 ML ONE (11:30)
[2019-11-08] MEDS ORDERED: FENTANYL PF 250 MCG/5ML ONE (11:31)
[2019-11-08] MEDS ORDERED: BUPIVACAINE/PF 0.5% ONE (11:31)
[2019-11-08] MEDS ORDERED: BUPIVACAINE/PF 0.25% INFIL ONE (11:58)
[2019-11-08] MEDS ORDERED: FENTANYL PF 100 MCG/2ML ONE (13:21)
[2019-11-08] MEDS ORDERED: OXYcodone 5 MG/5 ML ORAL.SOL UDC ONE (13:22)
[2019-11-08] MEDS: FENTANYL PF 100 MCG/2ML IV PRN ×4 (13:25→14:00)
[2019-11-08] MEDS ORDERED: EPHEDRINE 50 MG/ML, 1ML IVPush PRN (14:00)
[2019-11-08] MEDS ORDERED: ONDANSETRON ODT 8 MG PO PRN (14:00)
[2019-11-08] MEDS ORDERED: DIAZEPAM 5 MG/ML, 2ML IVPush PRN (14:00)
[2019-11-08] MEDS ORDERED: MIDAZOLAM 1 MG/ML, 2ML IV PRN (14:00)
[2019-11-08] MEDS ORDERED: MORPHINE SULFATE 4 MG/ML, 1ML IVPush PRN (14:00)
[2019-11-08] MEDS ORDERED: ACETAMINOPHEN 325 MG TABLET PO PRN (14:00)
[2019-11-08] MEDS ORDERED: MEPERIDINE/PF 25MG/ML,1ML IVPush PRN (14:00)
[2019-11-08] MEDS ORDERED: METOPROLOL 1 MG/ML, 5ML IV PRN (14:00)
[2019-11-08] MEDS ORDERED: hydrALAzine 20 MG/ML, 1ML IV PRN (14:00)
[2019-11-08] MEDS ORDERED: EPHEDRINE 50 MG/ML, 1ML IM PRN (14:00)
[2019-11-08] MEDS ORDERED: DIPHENHYDRAMINE 50 MG/ML, 1ML IVPush PRN (14:00)
[2019-11-08] MEDS ORDERED: PROMETHAZINE 25 MG/ML, 1ML IV PRN (14:00)
[2019-11-08] MEDS ORDERED: ONDANSETRON 2MG/ML, 2ML IV PRN (14:00)
[2019-11-08] MEDS ORDERED: OXYcodone 5 MG/5 ML ORAL.SOL UDC PO PRN (14:00)
[2019-11-08] MEDS ORDERED: CEFAZOLIN 1,000 MG ONE (17:08)
[2019-11-08] MEDS ORDERED: ONDANSETRON 2MG/ML, 2ML ONE (17:08)
[2019-11-08] MEDS ORDERED: PROPOFOL 10 MG/ML, 20ML ONE (17:08)
== END 2019-11-08 16:00 | disposition home or self-care (01) ==
LOC: OUT 10:37 → EDSTATUS 13:30 → OUT 16:00
PROVIDERS: ATTEND Surgery
DX: N63.10 Unspecified lump in the right breast, unspecified quadrant (principal); C50.111 Malignant neoplasm of central portion of right female breast; C77.3 Secondary and unspecified malignant neoplasm of axilla and upper limb lymph nodes; I48.91 Unspecified atrial fibrillation; I10 Essential (primary) hypertension; E11.9 Type 2 diabetes mellitus without complications; Z17.0 Estrogen receptor positive status [ER+]; Z79.01 Long term (current) use of anticoagulants; Z88.0 Allergy status to penicillin
CPT/HCPCS: 19301; 38525; 38792; 82962; 88305; 88307; 88331; A9541; J0690; J2250; J2405; J2704; J3010; J3490; J7120; 88341; 88342; 88360

== ENCOUNTER → 2019-12-20 | Outpatient (CLI) | payer MEDICARE ==
[~2019-12-20] MED LIST changes: +OMNIPAQUE 350 MG/ML, 100ML BOTTLE ONE
== END | disposition home or self-care (01) ==
LOC: CFH 08:52
PROVIDERS: ATTEND Surgery
DX: C50.919 Malignant neoplasm of unspecified site of unspecified female breast (principal); E04.1 Nontoxic single thyroid nodule; R91.1 Solitary pulmonary nodule; M51.34 Other intervertebral disc degeneration, thoracic region; K57.30 Diverticulosis of large intestine without perforation or abscess without bleeding; K42.9 Umbilical hernia without obstruction or gangrene; K43.9 Ventral hernia without obstruction or gangrene; D25.9 Leiomyoma of uterus, unspecified; K76.89 Other specified diseases of liver; I70.0 Atherosclerosis of aorta; R16.0 Hepatomegaly, not elsewhere classified
CPT/HCPCS: 71260; 74177; 82565; Q9967

== ENCOUNTER → 2020-05-19 | Outpatient (CLI) | payer MEDICARE ==
[~2020-05-19] MED LIST changes: -DIGO125T PO; +DIGO125T85 PO; -DIGO250T PO; +DIGO250T3 PO; +MULT-449 PO; -MULT1TAB60 PO; -OMNIPAQUE 350 MG/ML, 100ML BOTTLE ONE; +SIMV10TA18 PO; -SIMV10TA3 PO
== END | disposition home or self-care (01) ==
LOC: CFH 09:52
PROVIDERS: ATTEND Nurse Practitioner Family
DX: I08.2 Rheumatic disorders of both aortic and tricuspid valves (principal); I11.0 Hypertensive heart disease with heart failure; I50.41 Acute combined systolic (congestive) and diastolic (congestive) heart failure
CPT/HCPCS: 93306

== ENCOUNTER → 2020-11-20 | Outpatient (CLI) | payer MEDICARE ==
[~2020-11-20] MED LIST changes: +CYAN500T53 PO; -CYAN500T54 PO
== END | disposition home or self-care (01) ==
LOC: CFH 10:00
PROVIDERS: ATTEND Internal Medicine Cardiovascular Disease
DX: I08.3 Combined rheumatic disorders of mitral, aortic and tricuspid valves (principal); I11.9 Hypertensive heart disease without heart failure; I48.91 Unspecified atrial fibrillation; I42.9 Cardiomyopathy, unspecified
CPT/HCPCS: 93306